=== PATIENT | female | born 1990 | race Caucasian/White ===

== ENCOUNTER 2016-12-10 23:43 | Emergency (ER) | payer OTHER ==
[2016-12-10 23:57] VITALS: BP 124/79
--- NOTE | 2016-12-11 00:12 | EDM.PDOC ---
ED HPI GENERAL MEDICAL PROBLEM - General Chief Complaint: Abdominal Pain Stated Complaint: UPPER STOMACH PAIN/THROWING UP Time Seen by Provider: 12/11/16 00:12 - History of Present Illness INITIAL COMMENTS - FREE TEXT/NARRATIVE: 26-year-old female presents to emergency room with abdominal pain. This pain has been going on for the last 7 or 8 hours. It started about an hour before supper she did not eat supper. Patient was seen here back in June and thought to have either gastritis/ulcer disease or gallbladder problems. The patient has not been able to follow up in the clinic. The patient denies fevers chills she's had some nausea and significant upper abdominal discomfort. Right Upper Abdomen Pain Score (Numeric/FACES): 8 - Related Data Allergies Allergy/AdvReac Type Severity Reaction Status Date / Time No Known Allergies Allergy Verified 08/18/16 04:52 Home Meds: Home Meds Hydrocodone/Acetaminophen [Vicodin 5-300 mg Tablet] 1 tab PO Q4H PRN 12/10/16 [ History] Lansoprazole [Prevacid] 30 mg PO Q24H #30 tab.rap.dr 12/11/16 [Rx] Sucralfate [Carafate] 1 gm PO QIDACANDBED #30 tablet 12/11/16 [Rx] Past Medical History - Past Health History Medical/Surgical History: Denies Medical/Surgical History Social & Family History - Tobacco Use Smoking Status *Q: Current Every Day Smoker Years of Tobacco use: 10 Packs/Tins Daily: 1 - Alcohol Use Days Per Week of Alcohol Use: 2 Number of Drinks Per Day: 5 Total Drinks Per Week: 10 - Recreational Drug Use Recreational Drug Use: Yes Recreational Drug Type: 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 Denies: No Symptoms, Black Stool , Bloody Stool, Constipation, Diarrhea, Vomiting : Reports: No Symptoms ED EXAM, GI/ABD - Physical Exam Exam: See Below Exam Limited By: No Limitations General Appearance: Alert, No Apparent Distress Head: Atraumatic, Normocephalic Neck: Normal Inspection, Supple, Non-Tender, Full Range of Motion. No: Lymphadenopathy (L), Lymphadenopathy (R) Respiratory/Chest: No Respiratory Distress, Lungs Clear, Normal Breath Sounds Cardiovascular: Regular Rate, Rhythm, No Edema, No Murmur GI/Abdominal: Normal Bowel Sounds, Soft, Other (Patient has significant upper abdominal discomfort worse in the epigastric area to a lesser degree left upper quadrant no pain in the right upper quadrant she has no rigidity rebound or guarding noted.) Back Exam: Normal Inspection. No: CVA Tenderness (L), CVA Tenderness (R) Extremities: Normal Inspection, No Pedal Edema Neurological: Alert, Oriented Course - Vital Signs Last Recorded V/S: Last Vital Signs Temp 35.6 C 12/10/16 23:54 Pulse 67 12/10/16 23:54 Resp 16 12/10/16 23:54 BP 124/79 12/10/16 23:54 Pulse Ox 98 12/10/16 23:54 - Orders/Labs/Meds Orders: Active Orders 24 hr Category Date Time Status Pantoprazole [ProTONIX] Med 12/11/16 02:19 Active 40 mg PO DAILY Medication Orders Pantoprazole Sodium (Protonix) 40 mg PO DAILY RUBI Labs: Laboratory Tests 12/11/16 12/11/16 12/11/16 Range/Units 01:00 01:00 01:10 WBC 13.00 H (3.98-10.04) K/mm3 RBC 4.12 (3.98-5.22) M/mm3 Hgb 13.0 (11.2-15.7) gm/L Hct 39.5 (34.1-44.9) % MCV 95.9 H (79.4-94.8) fl MCH 31.6 (25.6-32.2) pg MCHC 32.9 (32.2-35.5) g/dl RDW Std Deviation 42.4 (36.4-46.3) fL Plt Count 326 (182-369) K/mm3 MPV 10.5 (9.4-12.3) fl Neutrophils % (Manual) 80 H (40-60) % Band Neutrophils % 0 (0-10) % Lymphocytes % (Manual) 17 L (20-40) % Atypical Lymphs % 0 % Monocytes % (Manual) 2 (2-10) % Eosinophils % (Manual) 1 (0.7-5.8) % Basophils % (Manual) 0 L (0.1-1.2) Platelet Estimate Adequate RBC Morph Comment Normal Sodium (136-145) mEq/L Potassium (3.5-5.1) mEq/L Chloride (98-107) mEq/L Carbon Dioxide (21-32) mEq/L Anion Gap (5-15) BUN (7-18) mg/dL Creatinine (0.55-1.02) mg/dL Est Cr Clr Drug Dosing Estimated GFR (MDRD) (>60) mL/min BUN/Creatinine Ratio (14-18) Glucose (74-106) mg/dL Calcium (8.5-10.1) mg/dL Total Bilirubin (0.2-1.0) mg/dL AST (15-37) U/L ALT (14-59) U/L Alkaline Phosphatase (46-116) U/L Total Protein (6.4-8.2) g/dl Albumin (3.4-5.0) g/dl Globulin gm/dL Albumin/Globulin Ratio (1-2) Lipase (73-393) U/L Urine Color Yellow (Yellow) Urine Appearance Slt cloudy H (Clear) Urine pH 6.0 (5.0-8.0) Ur Specific [place] > or = 1.030 (1.005-1.030) Urine Protein 1+ H (Negative) Urine Glucose (UA) Negative (Negative) Urine Ketones Negative (Negative) Urine Occult Blood Negative (Negative) Urine Nitrite Negative (Negative) Urine Bilirubin Negative (Negative) Urine Urobilinogen 0.2 (0.2-1.0) Ur Leukocyte Esterase Trace H (Negative) Urine RBC 0-5 (0-5) /hpf Urine WBC 5-10 H (0-5) /hpf Ur Epithelial Cells 5-10 H (0-5) /hpf Urine Bacteria Few (FEW) /hpf Urine Mucus Not seen (FEW) /hpf Urine HCG, Qual Negative (NEGATIVE) 12/11/16 Range/Units 01:10 WBC (3.98-10.04) K/mm3 RBC (3.98-5.22) M/mm3 Hgb (11.2-15.7) gm/L Hct (34.1-44.9) % MCV (79.4-94.8) fl MCH (25.6-32.2) pg MCHC (32.2-35.5) g/dl RDW Std Deviation (36.4-46.3) fL Plt Count (182-369) K/mm3 MPV (9.4-12.3) fl Neutrophils % (Manual) (40-60) % Band Neutrophils % (0-10) % Lymphocytes % (Manual) (20-40) % Atypical Lymphs % % Monocytes % (Manual) (2-10) % Eosinophils % (Manual) (0.7-5.8) % Basophils % (Manual) (0.1-1.2) Platelet Estimate RBC Morph Comment Sodium 142 (136-145) mEq/L Potassium 3.6 (3.5-5.1) mEq/L Chloride 106 (98-107) mEq/L Carbon Dioxide 28 (21-32) mEq/L Anion Gap 11.6 (5-15) BUN 10 (7-18) mg/dL Creatinine 0.6 (0.55-1.02) mg/dL Est Cr Clr Drug Dosing TNP Estimated GFR (MDRD) > 60 (>60) mL/min BUN/Creatinine Ratio 16.7 (14-18) Glucose 123 H (74-106) mg/dL Calcium 8.3 L (8.5-10.1) mg/dL Total Bilirubin 0.3 (0.2-1.0) mg/dL AST 9 L (15-37) U/L ALT 28 (14-59) U/L Alkaline Phosphatase 37 L (46-116) U/L Total Protein 7.0 (6.4-8.2) g/dl Albumin 3.6 (3.4-5.0) g/dl Globulin 3.4 gm/dL Albumin/Globulin Ratio 1.1 (1-2) Lipase 135 (73-393) U/L Urine Color (Yellow) Urine Appearance (Clear) Urine pH (5.0-8.0) Ur Specific [place] (1.005-1.030) Urine Protein (Negative) Urine Glucose (UA) (Negative) Urine Ketones (Negative) Urine Occult Blood (Negative) Urine Nitrite (Negative) Urine Bilirubin (Negative) Urine Urobilinogen (0.2-1.0) Ur Leukocyte Esterase (Negative) Urine RBC (0-5) /hpf Urine WBC (0-5) /hpf Ur Epithelial Cells (0-5) /hpf Urine Bacteria (FEW) /hpf Urine Mucus (FEW) /hpf Urine HCG, Qual (NEGATIVE) Meds: Medications Generic Name Dose Route Start Last Admin Trade Name Mike PRN Reason Stop Dose Admin Pantoprazole Sodium 40 mg 12/11/16 02:19 Protonix PO DAILY RUBI Discontinued Medications Generic Name Dose Route Start Last Admin Trade Name Mike PRN Reason Stop Dose Admin Al Hydroxide/Mg Hydroxide 30 0 ml 12/11/16 00:45 12/11/16 00:49 ml/ Lidocaine HCl 15 ml PO 12/11/16 00:46 45 ml ONETIME ONE Administration Pantoprazole Sodium 40 mg 12/11/16 09:00 Protonix PO DAILY RUBI Sucralfate 1 gm 12/11/16 02:08 Carafate PO 12/11/16 02:09 ONETIME ONE - Re-Assessments/Exams Free Text/Narrative Re-Assessment/Exam: 12/11/16 01:43 Patient is pain-free after the GI cocktail labs still pending. 12/11/16 02:09 Chemistries unremarkable CBC unremarkable urinalysis probably contaminated. HCG negative. At this point we'll discharge the patient with Carafate and PPI therapy she needs to follow-up in the clinic. Gallbladder disease is less likely however not completely excluded. Departure - Departure Time of Disposition: 02:11 Disposition: Home, Self-Care 01 Clinical Impression: Upper abdominal pain, Dyspepsia - Discharge Information Prescriptions: Lansoprazole [Prevacid] 30 mg PO Q24H #30 tab.rap. Sucralfate [Carafate] 1 gm PO QIDACANDBED #30 tablet Referrals: PCP,None [Primary Care Provider] - Forms: ED Department Discharge Additional Instructions: Return to the emergency room with any questions problems or worsening symptoms. Follow-up at the Hospital clinic this next week for recheck [id number] You have been started on Prevacid take 1 daily 1 hour before your evening meal. You have been started on Carafate tablets take one 4 times a day just before breakfast lunch and supper and before bedtime. Take your other medications at least 1 hour before taking this medication or 2 hours after taking this medication. - My Orders Last 24 Hours: My Active Orders 12/11/16 02:19 Pantoprazole [ProTONIX] 40 mg PO DAILY - Assessment/Plan Last 24 Hours: My Active Orders 12/11/16 02:19 Pantoprazole [ProTONIX] 40 mg PO DAILY
[2016-12-11] MEDS ORDERED: Alum Hydrox/Mag Hydrox/Simeth 30 ML, Lidocaine 2% 15 ML PO ONE ×2 (00:45)
[2016-12-11] MEDS ORDERED: Sucralfate Suspension 1 GM/10 ML Cup PO ONE (02:08)
[2016-12-11] MEDS ORDERED: Pantoprazole 40 MG Tab.CR PO SCH ×2 (02:19→09:00)
== END 2016-12-11 02:30 | disposition home or self-care (01) ==
LOC: JD.ED 23:43
DX: R10.12 Left upper quadrant pain (principal); R10.13 Epigastric pain; F17.210 Nicotine dependence, cigarettes, uncomplicated
CPT/HCPCS: 36415; 80053; 81001; 81025; 83690; 85025; 99284; A9270; 99283

== ENCOUNTER → 2018-07-17 | Day surgery (SDC) | payer MEDICAID ==
[~2018-07-17] MED LIST: Acetaminophen/oxyCODONE 325-5 MG Tab PO PRN; Albuterol 0.083% 2.5 MG/3 ML Neb Soln NEB ONE; Ampicillin/Sulbactam Na 3 GM Vial ONE; Bupivacaine 0.5% 30 ML SDV ONE; Dexamethasone 4 MG/ML 5 ML MDV ONE; HYDROmorphone 0.5 MG/0.5 ML Syringe IVPUSH PRN; HYDROmorphone 0.5 MG/0.5 ML Syringe ONE; Haloperidol Lactate 5 MG/ML SDV IVPUSH ONE; Iopamidol 612 MG/ML 50 ML SDV ONE; Ketorolac 30 MG/ML SDV ONE; Lactated Ringers 1,000 ML IV SCH; Lactated Ringers 1,000 ML ONE; Lidocaine 1% 4 ML ONE; Lidocaine 1% with EPINEPHrine 1:100,000 20 ML MDV ONE; Lidocaine 1%/Sod Bicarbonate in NS 8.4% 1 ML Syringe IDERM PRN; Meperidine 50 MG/ML Vial IVPUSH PRN; Midazolam 1 MG/ML 2 ML SDV ONE; Ondansetron 4 MG/2 ML SDV IVPUSH PRN; Ondansetron 4 MG/2 ML SDV ONE; Propofol 200 MG/20 ML SDV ONE; Rocuronium 50 MG/5 ML Vial ONE; Sodium Chloride 0.9% 10 ML Syringe FLUSH PRN; Sodium Chloride 0.9% 50 ML SDV ONE; diphenhydrAMINE 50 MG/ML SDV IVPUSH PRN; fentaNYL 100 MCG/2 ML SDV IVPUSH PRN; fentaNYL 100 MCG/2 ML SDV ONE; fentaNYL 250 MCG/5 ML SDV ONE
--- NOTE | 2018-07-17 11:57 | PCM.PREANE ---
Preanesthetic Assessment - Procedure Proposed Procedure: Laparoscopic cholecystectomy with IOC - Anesthesia/Transfusion/Family Hx Anesthesia History: Prior Anesthesia Without Reaction Family History of Anesthesia Reaction: No Transfusion History: No Prior Transfusion(s) - Review of Systems General: No Symptoms Pulmonary: No Symptoms Cardiovascular: No Symptoms Gastrointestinal: No Symptoms Neurological: No Symptoms Other: Reports: None - Physical Assessment NPO Status Date: 07/17/18 NPO Status Time: 02:00 (sip of water) Pulse: 95 O2 Sat by Pulse Oximetry: 96 Respiratory Rate: 16 Blood Pressure: 124/61 Temperature: 36.6 C Vital Signs: Last Vital Signs Temp Pulse Resp BP Pulse Ox 95 07/17/18 10:35 Height: 1.68 m Weight: 89 kg Mental Status: Alert & Oriented x3 Airway Class: Mallampati = 2 Dentition: Reports: Broken Tooth/Teeth (bottom right molar ) Thyro-Mental Finger Breadths: 3 Mouth Opening Finger Breadths: 3 ROM/Head Extension: Full Lungs: Clear to Auscultation, Normal Respiratory Effort Cardiovascular: Regular Rate, Regular Rhythm - Lab Values: Laboratory Last Values Urine HCG, Qual Negative (NEGATIVE) 07/17/18 10:11 - Allergies Allergies/Adverse Reactions: Allergies Allergy/AdvReac Type Severity Reaction Status Date / Time No Known Allergies Allergy Verified 07/17/18 10:39 - Blood Blood Available: No Product(s) Available: None - Anesthesia Plan Pre-Op Medication Ordered: None - Acknowledgements Anesthesia Type Planned: General Anesthesia Pt an Appropriate Candidate for the Planned Anesthesia: Yes Alternatives and Risks of Anesthesia Discussed w Pt/Guardian: Yes Pt/Guardian Understands and Agrees with Anesthesia Plan: Yes PreAnesthesia Questionnaire - Past Health History Medical/Surgical History: Denies Medical/Surgical History HEENT History: Reports: Impaired Vision Cardiovascular History: Reports: None Respiratory History: Reports: None Gastrointestinal History: Reports: Cholelithiasis, Other (See Below) Other Gastrointestinal History: BILIARY COLIC Genitourinary History: Reports: None DOUBLER HELPER History: Reports: None Musculoskeletal History: Reports: None Neurological History: Reports: None Psychiatric History: Reports: None Endocrine/Metabolic History: Reports: None Hematologic History: Reports: None Immunologic History: Reports: None Oncologic (Cancer) History: Reports: None Dermatologic History: Reports: Other (See Below) Other Dermatologic History: TAILBONE CYST EXCISION - Past Surgical History Head Surgeries/Procedures: Reports: None HEENT Surgical History: Reports: None Cardiovascular Surgical History: Reports: None Respiratory Surgical History: Reports: None GI Surgical History: Reports: None Female Surgical History: Reports: None Male Surgical History: Reports: None Endocrine Surgical History: Reports: None Neurological Surgical History: Reports: None Musculoskeletal Surgical History: Reports: None Oncologic Surgical History: Reports: None - SUBSTANCE USE Smoking Status *Q: Current Every Day Smoker (1ppd for 15 years) Second Hand Smoke Exposure: Yes Recreational Drug Use History: Yes Recreational Drug Type: Reports: Methamphetamine (last used 2 months ago) - HOME MEDS Home Medications: Home Meds Levonorgestrel [Mirena] 1 dose VAG ASDIRECTED 07/16/18 [History] - CURRENT (IN HOUSE) MEDS Current Meds: Current Medications Lactated Ringer's (Ringers, Lactated) 1,000 mls @ 125 mls/hr IV ASDIRECTED RUBI Stop: 07/17/18 23:00 Lidocaine/Sodium Bicarbonate (Buffered Lidocaine 1% In Ns 8.4%) 0.25 ml IDERM ONETIME PRN PRN Reason: Prior to IV Start Stop: 07/17/18 18:00 Sodium Chloride (Saline Flush) 10 ml FLUSH ASDIRECTED PRN PRN Reason: Keep Vein Open Stop: 07/17/18 18:00 Discontinued Medications Albuterol (Proventil Neb Soln) 2.5 mg NEB ONETIME ONE Stop: 07/17/18 10:46 Last Admin: 07/17/18 10:45 Dose: 2.5 mg Ampicillin Sodium/Sulbactam Sodium (Unasyn) Confirm Administered Dose 3 gm .ROUTE .STK-MED ONE Stop: 07/17/18 11:20 Bupivacaine HCl (Marcaine 0.5%) Confirm Administered Dose 30 ml .ROUTE .STK-MED ONE Stop: 07/17/18 10:14 Dexamethasone (Dexamethasone) Confirm Administered Dose 20 mg .ROUTE .STK-MED ONE Stop: 07/17/18 10:06 Fentanyl (Sublimaze) Confirm Administered Dose 100 mcg .ROUTE .STK-MED ONE Stop: 07/17/18 09:58 Fentanyl (Sublimaze) Confirm Administered Dose 100 mcg .ROUTE .STK-MED ONE Stop: 07/17/18 10:12 Fentanyl (Sublimaze) Confirm Administered Dose 250 mcg .ROUTE .STK-MED ONE Stop: 07/17/18 11:24 Hydromorphone HCl (Dilaudid) Confirm Administered Dose 0.5 mg .ROUTE .[facility] ONE Stop: 07/17/18 11:23 Hydromorphone HCl (Dilaudid) Confirm Administered Dose 0.5 mg .ROUTE .[facility] ONE Stop: 07/17/18 11:23 Lidocaine HCl (Xylocaine-Mpf 1%) Confirm Administered Dose 4 mls @ as directed .ROUTE .[facility] ONE Stop: 07/17/18 09:58 Lactated Ringer's (Ringers, Lactated) Confirm Administered Dose 1,000 mls @ as directed .ROUTE .[facility] ONE Stop: 07/17/18 10:06 Lidocaine HCl (Xylocaine-Mpf 1%) Confirm Administered Dose 4 mls @ as directed .ROUTE .[facility] ONE Stop: 07/17/18 10:12 Iopamidol (Isovue-300 (61%)) Confirm Administered Dose 50 ml .ROUTE .[facility] ONE Stop: 07/17/18 11:38 Ketorolac Tromethamine (Toradol) Confirm Administered Dose 30 [address] .[facility] ONE Stop: 07/17/18 10:06 Lidocaine/Epinephrine (Xylocaine 1% With Epinephrine 1:100,000) Confirm Administered Dose 20 ml .ROUTE .[facility] ONE Stop: 07/17/18 10:14 Midazolam HCl (Versed 1 Mg/Ml) Confirm Administered Dose 2 mg .ROUTE .[facility] ONE Stop: 07/17/18 10:06 Ondansetron HCl (Zofran) Confirm Administered Dose 4 mg .ROUTE .[facility] ONE Stop: 07/17/18 10:06 Propofol (Diprivan 20 Ml) Confirm Administered Dose 200 mg .ROUTE .[facility] ONE Stop: 07/17/18 09:58 Propofol (Diprivan 20 Ml) Confirm Administered Dose 200 mg .ROUTE .[facility] ONE Stop: 07/17/18 10:12 Propofol (Diprivan 20 Ml) Confirm Administered Dose 200 mg .ROUTE .[facility] ONE Stop: 07/17/18 10:14 Rocuronium [place] (Zemuron) Confirm Administered Dose 50 mg .ROUTE .[facility] ONE Stop: 07/17/18 10:06 Sodium Chloride (Normal Saline) Confirm Administered Dose 100 ml .ROUTE .[facility] ONE Stop: 07/17/18 11:38
--- NOTE | 2018-07-17 13:23 | PCM.OPNOTE ---
- General Post-Op/Procedure Note Date of Surgery/Procedure: 07/17/18 Operative Procedure(s): laparoscopic cholecystectomy Findings: Chronic inflammatory scar around the gallbladder infundibulum, making dissection difficult. Large >1 cm stone in gallbladder Pre Op Diagnosis: symptomatic cholelithiasis Post-Op Diagnosis: chronic calculous cholecystitis Anesthesia Technique: General ET Tube Primary Surgeon: Rolando Andujar Anesthesia Provider: Arnoldo Ocasio Pathology: gallbladder Fluid Replacement, Intraop: 2,000 (crystalloid) EBL in mLs: 20 Complications: None Condition: Good Free Text/Narrative:: Indications for surgery: The patient is a 28 yo female who presents with symptomatic cholelithiasis. She was consented for laparoscopic cholecystectomy, possible open, possible intraoperative cholangiogram. Indications, risks, and benefits were discussed with the patient in detail. Description of procedure: After surgical consent was verified, the patient was brought to the main OR. Anesthesia performed general endotracheal intubation without complications. Appropriate padding and straps were placed. SCD's were on and functioning. Perioperative antibiotic (Unasyn IV) was administered. A surgical time-out was performed to verify proper patient, proper site, and proper procedure. Local anesthetic (1:1 solution of 1% lidocaine with epinephrine and 0.5% bupivacaine) was injected at the supraumbilical region. A 2 cm supraumbilical curvilinear incision was made. Dissection was carried down to the underlying fascia. The umbilical stalk was grasped and elevated. A Veress needle was inserted, and the abdomen was insufflated to 15 mmHg. A 5 mm trocar was inserted using the Optiview technique. A laparoscope was inserted, and there was no evidence of intra-abdominal injury from trocar placement. Additional trocars were placed: a 12 mm trocar at the epigastric region, and two 5-mm trocars in the RUQ. The gallbladder was identified. The fundus of the gallbladder was grasped and elevated over the liver. The gallbladder infundibulum was then grasped and lateral traction was applied, allowing exposure of Calot's triangle. The area around the infundibulum and Calot's triangle had inflammatory scarring, making dissection fairly difficult. Through meticulous dissection, the cystic artery was dissected out, which was doubly clipped and divided. This structure was verified to enter the gallbladder only. Further dissection around Calot's triangle led to improved exposure, with the lower 1/3 of the gallbladder was dissected off the liver bed, with the liver visible behind. The cystic duct was carefully delineated. However, it was too wide to accommodate a clip, so the decision was made to use a stapler. A blue load 45 mm stapler was used to divide across the cystic duct. Due to the cystic duct size, as well as the inflammatory scarring, the decision was made not to cause further potential injury by attempting IOC. The gallbaldder was dissected off the gallbladder fossa, placed in an Endocatch bag, and removed through the 12 mm trocar site. There was minor oozing from the liver bed, and hemostasis was obtained with electrocautery. The 12 mm trocar site was then closed with an 0-Vicryl suture on a transfascial suture passer. All trocars were removed under direct visualization, and the abdomen was allowed to desufflate. All skin sites were closed with 4-0 Monocryl and covered with Dermabond. The patient tolerated the procedure well, was brought out of anesthesia, and transported to the PACU in stable condition. At the end of the case, all needle , instrument, and gauze counts were correct. I was present and scrubbed for the entirety of the case. Rolando Andujar M.D., F.A.C.S. General Surgery Pager: [phone]
--- NOTE | 2018-07-17 13:29 | PCM.POSTAN ---
POST ANESTHESIA ASSESSMENT - MENTAL STATUS Mental Status: Alert, Oriented - VITAL SIGNS Pulse Rate: 89 SaO2: 93 Resp Rate: 14 Blood Pressure: 126/73 Temperature: 37.6 C - RESPIRATORY Respiratory Status: Respiratory Rate WNL, Airway Patent, O2 Saturation Stable, Supplemental Oxygen - CARDIOVASCULAR CV Status: Pulse Rate WNL, Blood Pressure Stable - GASTROINTESTINAL GI Status: No Symptoms - PAIN Pain Score: 0 - POST OP HYDRATION Hydration Status: Adequate & Stable
[2018-07-17 16:44] VITALS: BP 117/74
--- NOTE | 2018-07-18 10:24 | PCM48HPAN ---
Post Anesthesia Note - EVALUATION WITHIN 48HRS OF ANESTHETIC Vital Signs in Normal Range: Yes Patient Participated in Evaluation: Yes Respiratory Function Stable: Yes Airway Patent: Yes Cardiovascular Function Stable: Yes Hydration Status Stable: Yes Pain Control Satisfactory: Yes Nausea and Vomiting Control Satisfactory: Yes Mental Status Recovered: Yes
== END | disposition home or self-care (01) ==
LOC: JD.SDS 10:03
PROVIDERS: ATTEND Student in an Organized Health Care Education/Training Program
DX: K80.10 Calculus of gallbladder with chronic cholecystitis without obstruction (principal); F17.210 Nicotine dependence, cigarettes, uncomplicated; E66.9 Obesity, unspecified
CPT/HCPCS: 47562; 81025; 94640; J0295; J1100; J1170; J1630; J2250; J2405; J2704; J3010; J3490; J7120; J1885; J2001; Q9967

== ENCOUNTER 2025-03-13 21:48 | Emergency (ER) | payer BC, MEDICAID ==
[2025-03-13 22:04] VITALS: BP 156/136; PULSE 97
[2025-03-13 22:31] LABS: BASOPHILS ABSOLUTE AUTO 0.0 K/mm3 (0.0-0.2); BASOPHILS PERCENT AUTO 0.3 % (0.0-1.0); EOSINOPHILS ABSOLUTE AUTO 0.1 K/mm3 (0.0-0.4); EOSINOPHILS PERCENT AUTO 0.9 % (0.0-6.0); IMMATURE GRAN ABSOLUTE AUTO 0.04 K/mm3 (0.00-0.05); IMMATURE GRAN PERCENT AUTO 0.3 % (0.0-0.4); LYMPHOCYTES ABSOLUTE AUTO 2.6 K/mm3 (1.0-4.8); LYMPHOCYTES PERCENT AUTO 21.7 % (24.0-44.0); MEAN PLATELET VOLUME 10.4 fl (9.4-12.3); MONOCYTES ABSOLUTE AUTO 0.8 K/mm3 (0.0-0.8); MONOCYTES PERCENT AUTO 6.8 % (0.0-8.0); NEUTROPHILS ABSOLUTE AUTO 8.3 K/mm3 (1.8-7.7); NEUTROPHILS PERCENT AUTO 70.0 % (41.0-71.0); NRBC ABSOLUTE 0.00 (0.00-0.02); NRBC PERCENT 0.0 % (0.0-0.2); PLATELET COUNT,PLT 273 K/mm3 (150-400); RED BLOOD CELL COUNT 3.88 M/mm3 (4.10-5.30); WHITE BLOOD CELL COUNT,WBC 11.81 K/mm3 (3.9-11.3)
[2025-03-13 22:32] LABS: APPEARANCE,URINE CLEAR (Clear); GLUCOSE,URINE NEGATIVE (Negative); OCCULT BLOOD,URINE 1+ (Negative)
[2025-03-13 23:12] LABS: A/G RATIO 0.9 (1-2); ALANINE AMINOTRANSFERASE,ALT 16.0 U/L (14-59); ASPARTATE AMNIOTRANSFERASE,AST 10.0 U/L (15-37); BILIRUBIN TOTAL 0.2 mg/dL (0.2-1.0); BLOOD UREA NITROGEN,BUN 4.0 mg/dL (7-18); CARBON DIOXIDE,CO2 23.0 mEq/L (21-32); CHLORIDE,CL 105.0 mEq/L (98-107); CREATININE 0.4 mg/dL (0.55-1.02); EST CRCL DRUG DOSING (CG) 178.32 mL/min; ESTIMATED GFR 133.0 mL/min (>60); GLUCOSE RANDOM 111.0 mg/dL (70-99); HCG QUANTITATIVE 10340.0 mIU/mL; POTASSIUM,K 3.5 mEq/L (3.5-5.1); PROTEIN TOTAL,TP 6.2 g/dl (6.4-8.2); SODIUM,NA 136.0 mEq/L (136-145)
== END 2025-03-14 00:32 | disposition home or self-care (01) ==
LOC: JD.ED 21:48
DX: O20.9 Hemorrhage in early pregnancy, unspecified (principal); Z86.16 Personal history of COVID-19; Z90.49 Acquired absence of other specified parts of digestive tract; Z87.891 Personal history of nicotine dependence; Z79.899 Other long term (current) drug therapy; Z3A.17 17 weeks gestation of pregnancy
CPT/HCPCS: 36415; 76805; 76805-26; 80053; 81001; 84702; 85025; 86900; 86901; 99283; 99284